=== PATIENT | female | born 1985 | race Caucasian/White ===

== ENCOUNTER 2018-12-10 14:35 | Inpatient (IN) | payer BC ==
[2018-12-10 16:09] LABS: Absolute Lymphocytes (CBC) 1.3 K/uL (0.7-4.9); Absolute Monocytes 0.6 K/uL (0.1-1.3); Absolute Neutrophil 9.4 K/uL (1.8-8.0); Basophils % 0.6 % (0-1.3); Eosinophils % 0.5 % (0-4.4); Hematocrit 44.8 % (36.0-45.0); Lymphocytes % 11.3 % (15.3-44.8); MPV 9.1 fL (7.6-11.3); Monocytes % 5.3 % (3.3-12.3); RBC Red Blood Cell Count 5.05 M/uL (3.86-4.86)
[2018-12-10 16:25] LABS: Protime INR 1.04
[2018-12-10 16:27] LABS: ALT/SGPT 19 U/L (12-78); AST/SGOT 12 U/L (15-37); Albumin 4.1 g/dL (3.4-5.0); Alkaline Phosphatase 80 U/L (45-117); BUN Blood Urea Nitrogen 9 mg/dL (7-18); Bicarbonate 26 mmol/L (21-32); Bilirubin Direct 0.1 mg/dL (0-0.2); Bilirubin Total 0.3 mg/dL (0.2-1.0); Glucose Level 103 mg/dL (74-106); Lipase 91 U/L (73-393); Magnesium 2.1 mg/dL (1.8-2.4); Potassium 3.6 mmol/L (3.5-5.1); Protein, Total 7.7 g/dL (6.4-8.2); Sodium Level 140 mmol/L (136-145)
[2018-12-10] MEDS ORDERED: NA CHLORIDE 0.9% 1,000 ML ONE ×2 (16:28→18:58)
--- NOTE | 2018-12-10 18:35 | RAD REPORT ---
EXAM DESCRIPTION: CT - Abdomen Pelvis W Contrast - 12/10/2018 6:21 pm CLINICAL HISTORY: Abdominal pain, bloody diarrhea COMPARISON: None. TECHNIQUE: Biphasic, helical CT imaging of the abdomen and pelvis was performed following 100 ml non -ionic IV contrast. Oral contrast was given. All CT scans are performed using dose optimization technique as appropriate and may include automated exposure control or mA/KV adjustment according to patient size. FINDINGS: No suspicious findings in the lung bases. The liver, spleen, and pancreas show no suspicious findings. Gallbladder and biliary tree are also wi thout suspicious finding. Symmetric renal function is seen with no hydronephrosis or suspicious renal mass. No pyelonephritis o r acute parenchymal process. No bladder abnormalities. No adrenal abnormalities. No gastric dilatation or wall thickening. No dilated small bowel. No appendicitis findings. From the cecum through the splenic flexure no acute colon finding. There is circumferential wall thickening of the descending colon. Little or no stranding is seen in the adjacent fat. Rectum and sigmoid colon a re only partially distended by the oral contrast. Active process is not suspected. No free air, free fluid or significant inflammatory stranding. No hernia, mass or bulky lymphadeno fidel. Uterus and ovaries show no suspicious findings. No suspicious bony findings. IMPRESSION: Mild colitis pattern identifiable in the descending colon. No discrete mass identifiable . No other acute GI process identifiable. Remainder the examination shows no significant or suspicious finding.
[2018-12-10 19:50] LABS: Urine Blood 2+ (NEG); Urine Glucose NEGATIVE (NEG); Urine Protein NEGATIVE (NEG); Urine Specific Gravity >1.030 (1.005-1.030)
--- NOTE | 2018-12-10 19:52 | EDPHYS ---
Physician Documentation [facility] Name: Ary Sanders Age: 33 yrs Sex: Female : 1985 Arrival Date: 12/10/2018 Time: 14:40 Bed 13 Private MD: ED Physician Christophe Dobbins HPI: 12/10 15:45 This 33 yrs old Female presents to ER via Ambulatory with complaints of cp Abdominal Pain, Bloody Stools. 15:45 The patient presents with abdominal pain that is diffuse. cp 15:45 Onset: The symptoms/episode began/occurred yesterday, and became worse this morning. cp Associated signs and symptoms: Pertinent positives: blood in stools, diarrhea, nausea, Pertinent negatives: chest pain, constipation, dysuria, fever, palpitations, vaginal discharge, vomiting. The symptoms are described as crampy. Patient reports she started taking Amoxicillin last week for enlarged lymph node. 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 - Social history:: Smoking status: Patient/guardian denies using tobacco, Patient/guardian denies using alcohol, street drugs. - Ebola Screening: : Patient negative for fever greater than or equal to 101.5 degrees Fahrenheit, and additional compatible Ebola Virus Disease symptoms Patient denies exposure to infectious person Patient denies travel to an Ebola-affected area in the 21 days before illness onset No symptoms or risks identified at this time. ROS: 16:00 Constitutional: Negative for body aches, chills, fever, poor PO intake. cp 16:00 Eyes: Negative for injury, pain, redness, and discharge. cp 16:00 ENT: Negative for drainage from ear(s), ear pain, sore throat, difficulty swallowing, difficulty handling secretions. 16:00 Cardiovascular: Negative for chest pain, edema, palpitations. 16:00 Respiratory: Negative for cough, shortness of breath, wheezing. 16:00 Abdomen/GI: Positive for abdominal pain, nausea, diarrhea, abdominal cramps, rectal bleeding, Negative for vomiting. 16:00 Back: Negative for pain at rest, pain with movement, radiated pain. 16:00 : Negative for urinary symptoms, vaginal bleeding. 16:00 Skin: Negative for cellulitis, rash. 16:00 Neuro: Negative for altered mental status, headache, syncope, weakness. 16:00 All other systems are negative. Exam: 16:05 Head/Face: Normocephalic, atraumatic. Eyes: Pupils equal round and reactive to light, cp extra-ocular motions intact. Lids and lashes normal. Conjunctiva and sclera are non-icteric and not injected. Cornea within normal limits. Periorbital areas with no swelling, redness, or edema. ENT: Nares patent. No nasal discharge, no septal abnormalities noted. Tympanic membranes are normal and external auditory canals are clear. Oropharynx with no redness, swelling, or masses, exudates, or evidence of obstruction, uvula midline. Mucous membranes moist. Chest/axilla: Normal chest wall appearance and motion. Nontender with no deformity. No lesions are appreciated. 16:05 Constitutional: The patient appears in no acute distress, alert, awake, non-toxic, well developed, well nourished, uncomfortable. 16:05 Cardiovascular: Rate: tachycardic, Rhythm: regular, Heart sounds: murmur, not cp appreciated, Edema: is not appreciated. 16:05 Respiratory: the patient does not display signs of respiratory distress, Respirations: normal, no use of accessory muscles, no retractions, no splinting, no tachypnea, labored breathing, is not present, Breath sounds: are clear throughout, no decreased breath sounds, no stridor, no wheezing. 16:05 Abdomen/GI: Inspection: abdomen appears normal, Bowel sounds: active, all quadrants, Palpation: soft, in all quadrants, moderate abdominal tenderness, in all quadrants, rebound tenderness, is not appreciated, involuntary guarding, is not appreciated. 16:05 Back: pain, is absent, ROM is normal. 16:05 Skin: cellulitis, is not appreciated, no rash present. 16:05 Neuro: Orientation: to person, place \T\ time. Mentation: is normal, Cerebellar function: is grossly normal, Motor: moves all fours, strength is normal, Sensation: is normal. Vital Signs: 15:15 BP 144 / 99; Pulse 110; Resp 22; Temp 98.9; Pulse Ox 99% on R/A; Weight 65.77 kg; ch Height 4 ft. 10 in. (147.32 cm); Pain 3/10; 15:56 BP 126 / 80 Supine; Pulse 96; Resp 17; Pulse Ox 100% on R/A; mh5 15:58 BP 134 / 91 Sitting; Pulse 98; Resp 18; Pulse Ox 100% on R/A; mh5 16:00 BP 132 / 89 Standing; Pulse 106; Resp 19; Pulse Ox 100% on R/A; mh5 17:00 BP 134 / 91; Pulse 83; Resp 16; Pulse Ox 99% on R/A; rb1 18:00 BP 132 / 89; Pulse 92; Resp 17; Pulse Ox 99% on R/A; Pain 2/10; rb1 19:00 BP 128 / 83; Pulse 86; Resp 16; Pulse Ox 100% on R/A; Pain 2/10; rb1 19:33 BP 131 / 85; Pulse 94; Resp 16 S; Temp 98.5(O); Pulse Ox 100% on R/A; cc3 20:15 BP 127 / 82; Pulse 87; Resp 17 S; Pulse Ox 99% on R/A; cc3 21:00 BP 113 / 67; Pulse 88; Resp 18 S; Pulse Ox 99% on R/A; cc3 15:15 Body Mass Index 30.30 (65.77 kg, 147.32 cm) ch MDM: 15:21 Patient medically screened. cp 16:00 Differential diagnosis: appendicitis, bowel obstruction, cholecystitis, Cholelithiasis, cp diverticulitis, gastritis, pancreatitis, colitis. 18:55 Data reviewed: vital signs, nurses notes, lab test result(s), radiologic studies, CT cp scan, I have discussed the patient's presentation/case with the attending Emergency Department Physician; and as a result, I will admit patient. 19:25 Physician consultation: Kiel Bravo MD was called at 19:25, was contacted at 19:25, regarding admission, to the medical/surgical unit. patient's condition. 19:25 Response to treatment: the patient's symptoms have markedly improved after treatment. 12/10 15:32 Order name: Basic Metabolic Panel; Complete Time: 16:58 cp / 16:58 Interpretation: Normal except: CL 109. cp / 15:32 Order name: CBC with Diff; Complete Time: 16:58 cp 12/10 16:58 Interpretation: Normal except: WBC 11.4; RBC 5.05; MARIA EUGENIA% 82.3; LYM% 11.3; NEUT A 9.4. cp / 15:32 Order name: Creatinine for Radiology; Complete Time: 16:58 cp 12/10 15:32 Order name: Hepatic Function; Complete Time: 16:58 cp 12/10 19:20 Interpretation: Normal except: AST 12; GLOB 3.6. cp 12/10 15:32 Order name: Lipase; Complete Time: 16:58 cp 12/10 15:32 Order name: Stool Culture cp 12/10 15:32 Order name: CDIFF cp 12/10 15:32 Order name: Magnesium; Complete Time: 16:58 cp 12/10 15:55 Order name: PT-INR; Complete Time: 16:58 cp 12/10 15:55 Order name: Ptt, Activated; Complete Time: 16:58 cp 12/10 15:55 Order name: CT Abd/Pelvis - W/Contrast; Complete Time: 18:38 cp 12/10 18:38 Interpretation: Report reviewed. cp 12/10 16:05 Order name: Urine Dipstick--Ancillary (enter results) bd 12/10 16:05 Order name: Urine --Ancillary (enter results) bd / 15:32 Order name: IV Saline Lock; Complete Time: 16:02 cp 12/10 15:32 Order name: Labs collected and sent; Complete Time: 16:02 cp 12/10 15:32 Order name: Orthostatics; Complete Time: 16:11 cp / 15:32 Order name: Urine Dipstick-Ancillary (obtain specimen); Complete Time: 16:02 cp / 15:32 Order name: Urine Test (obtain specimen); Complete Time: 16:02 cp Administered Medications: 16:24 Drug: NS 0.9% 1000 ml Route: IV; Rate: 1 bolus; Site: right antecubital; rb1 17:37 Follow up: IV Status: Completed infusion rb1 18:49 Drug: NS 0.9% 1000 ml Route: IV; Rate: 1 bolus; Site: right antecubital; rb1 20:15 Follow up: Response: No adverse reaction; IV Status: Completed infusion; IV Intake: cc3 1000ml 19:55 Drug: metroNIDAZOLE 500 mg Volume: 100 ml; Route: IVPB; Infused Over: 30 mins; Site: cc3 right antecubital; 20:30 Follow up: Response: No adverse reaction; IV Status: Completed infusion; IV Intake: cc3 100ml 20:35 Drug: Cipro 400 mg Volume: 200 ml; Route: IVPB; Infused Over: 60 mins; Site: right cc3 antecubital; 21:40 Follow up: Response: No adverse reaction; IV Status: Completed infusion; IV Intake: cc3 200ml Disposition: 12/10/18 19:51 Hospitalization ordered by Kiel Bravo for Observation. Preliminary diagnosis are Infectious gastroenteritis and colitis, unspecified, Gastrointestinal hemorrhage, unspecified. - Bed requested for Telemetry/MedSurg (observation). - Status is Observation. cc3 - Condition is Stable. - Problem is new. - Symptoms have improved. UTI on Admission? No Addendum: 12/16/2018 07:16 Co-signature as Attending Physician, Christophe Dobbins MD. r n Signatures: Dispatcher [employer] EDTX Magali Caraballo RN RN ch Webb, Martha, RN RN Christophe Dobbins MD MD rn Page, Corey, PA PA cp Barber, Rebecca, RN RN rb1 Brianne Calles cc3 Corrections: (The following items were deleted from the chart) 12/10 15:34 15:33 Occult Blood+PA.LAB.BRZ ordered. EDTX EDTX 20:12 19:51 Hospitalization Ordered by Kiel Bravo MD for Observation. Preliminary mw diagnosis is Infectious gastroenteritis and colitis, unspecified; Gastrointestinal hemorrhage, unspecified. Bed requested for Telemetry/MedSurg (observation). Status is Observation. Condition is Stable. Problem is new. Symptoms have improved. UTI on Admission? No. cp 21:57 20:12 12/10/2018 19:51 Hospitalization Ordered by Kiel Bravo MD for Observation. cc3 Preliminary diagnosis is Infectious gastroenteritis and colitis, unspecified; Gastrointestinal hemorrhage, unspecified. Bed requested for Telemetry/MedSurg (observation). Status is Observation. Condition is Stable. Problem is new. Symptoms have improved. UTI on Admission? No. mw
--- NOTE | 2018-12-10 19:52 | ER ---
Nurse's Notes [facility] Name: Ary Sanders Age: 33 yrs Sex: Female : 1985 Arrival Date: 12/10/2018 Time: 14:40 Bed 13 Private MD: Diagnosis: Infectious gastroenteritis and colitis, unspecified;Gastrointestinal hemorrhage, unspecified Presentation: 12/10 15:14 Presenting complaint: Patient states: I thought I had a stomach bug, started last ch night, today I am having blood blood clots from my rectum, horrible cramps. Transition of care: patient was not received from another setting of care. Onset of symptoms was December 09, 2018. Risk Assessment: Do you want to hurt yourself or someone else? Patient reports no desire to harm self or others. Initial Sepsis Screen: Does the patient meet any 2 criteria? No. Patient's initial sepsis screen is negative. Does the patient have a suspected source of infection? No. Patient's initial sepsis screen is negative. Care prior to arrival: None. 15:14 Method Of Arrival: Ambulatory 15:14 Acuity: BIENVENIDO 3 Triage Assessment: 15:15 General: Appears in no apparent distress. comfortable, Behavior is calm, cooperative, ch appropriate for age. Pain: Complains of pain in abdomen Pain currently is 3 out of 10 on a pain scale. 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 - Social history:: Smoking status: Patient/guardian denies using tobacco, Patient/guardian denies using alcohol, street drugs. - Ebola Screening: : Patient negative for fever greater than or equal to 101.5 degrees Fahrenheit, and additional compatible Ebola Virus Disease symptoms Patient denies exposure to infectious person Patient denies travel to an Ebola-affected area in the 21 days before illness onset No symptoms or risks identified at this time. Screenin:20 Abuse screen: Denies threats or abuse. Nutritional screening: No deficits noted. rb1 Tuberculosis screening: No symptoms or risk factors identified. Fall Risk None identified. Assessment: 15:20 General: Appears uncomfortable, Behavior is calm, cooperative, Denies fever. Pain: rb1 Complains of pain in abdomen Pain currently is 6 out of 10 on a pain scale. Quality of pain is described as crampy, Pain began last night around 2300. Neuro: Level of Consciousness is awake, alert, obeys commands, Oriented to person, place, time, situation. Cardiovascular: Capillary refill < 3 seconds is brisk in bilateral fingers. Respiratory: Airway is patent Respiratory effort is even, unlabored, Respiratory pattern is regular, symmetrical. GI: Bowel sounds present X 4 quads. Abd is soft X 4 quads Reports cramping, bloody stool. : No signs and/or symptoms were reported regarding the genitourinary system. Derm: Skin is pink, warm \T\ dry. Musculoskeletal: Range of motion: intact in all extremities. 16:20 Reassessment: Patient appears in no apparent distress at this time. No changes from rb1 previously documented assessment. 17:20 Reassessment: Patient appears in no apparent distress at this time. Patient and/or rb1 family updated on plan of care and expected duration. Pain level reassessed. Patient is alert, oriented x 3, equal unlabored respirations, skin warm/dry/pink. 18:20 Reassessment: Pt. in CT. rb1 18:50 Reassessment: Patient appears in no apparent distress at this time. Patient and/or rb1 family updated on plan of care and expected duration. Pain level reassessed. Patient is alert, oriented x 3, equal unlabored respirations, skin warm/dry/pink. 19:15 Reassessment: Patient appears in no apparent distress at this time. Patient and/or cc3 family updated on plan of care and expected duration. Pain level reassessed. Patient is alert, oriented x 3, equal unlabored respirations, skin warm/dry/pink. Received this female patietn from morning shift YENI Bryan as a case of abdominal pain and bloody stools. With IV cannula gauge 22 at the right ACV with ongoing IVF of NS 1 liter infusing well. 20:15 Reassessment: Patient appears in no apparent distress at this time. Patient and/or cc3 family updated on plan of care and expected duration. Pain level reassessed. Patient is alert, oriented x 3, equal unlabored respirations, skin warm/dry/pink. 21:00 Reassessment: Patient appears in no apparent distress at this time. Patient and/or cc3 family updated on plan of care and expected duration. Pain level reassessed. Patient is alert, oriented x 3, equal unlabored respirations, skin warm/dry/pink. Room available in 223, called for report but was told that the nurse who will receive will just call me back. 21:30 Reassessment: Report called and handed over to YENI Bautista for continuity of care cc3 and management. 21:50 Reassessment: Patient appears in no apparent distress at this time. Patient and/or cc3 family updated on plan of care and expected duration. Pain level reassessed. Patient is alert, oriented x 3, equal unlabored respirations, skin warm/dry/pink. Patient left ER for admission vitally stable by wheelchair escorted by page technicianlissa Deluca. Vital Signs: 15:15 BP 144 / 99; Pulse 110; Resp 22; Temp 98.9; Pulse Ox 99% on R/A; Weight 65.77 kg; ch Height 4 ft. 10 in. (147.32 cm); Pain 3/10; 15:56 BP 126 / 80 Supine; Pulse 96; Resp 17; Pulse Ox 100% on R/A; mh5 15:58 BP 134 / 91 Sitting; Pulse 98; Resp 18; Pulse Ox 100% on R/A; mh5 16:00 BP 132 / 89 Standing; Pulse 106; Resp 19; Pulse Ox 100% on R/A; mh5 17:00 BP 134 / 91; Pulse 83; Resp 16; Pulse Ox 99% on R/A; rb1 18:00 BP 132 / 89; Pulse 92; Resp 17; Pulse Ox 99% on R/A; Pain 2/10; rb1 19:00 BP 128 / 83; Pulse 86; Resp 16; Pulse Ox 100% on R/A; Pain 2/10; rb1 19:33 BP 131 / 85; Pulse 94; Resp 16 S; Temp 98.5(O); Pulse Ox 100% on R/A; cc3 20:15 BP 127 / 82; Pulse 87; Resp 17 S; Pulse Ox 99% on R/A; cc3 21:00 BP 113 / 67; Pulse 88; Resp 18 S; Pulse Ox 99% on R/A; cc3 15:15 Body Mass Index 30.30 (65.77 kg, 147.32 cm) ED Course: 14:40 Patient arrived in ED. mr 15:15 Triage completed. 15:15 Arm band placed on left wrist. Patient placed in an exam room, on a stretcher. 15:20 Ferny Johnson PA is PHCP. cp 15:21 Christophe Dobbins MD is Attending Physician. cp 15:21 Randi Powell RN is Primary Nurse. rb1 16:04 Initial lab(s) drawn, by ms, sent to lab. Inserted saline lock: 22 gauge in right jl7 antecubital area, using aseptic technique. Blood collected. 16:10 Urine collected: clean catch specimen, clear. mh5 16:11 Patient has correct armband on for positive identification. Placed in gown. Bed in low mh5 position. Call light in reach. Side rails up X 1. Warm blanket given. Pulse ox on. NIBP on. 16:11 Urine --Ancillary (enter results) Sent. mh5 16:11 Urine Dipstick--Ancillary (enter results) Sent. mh5 16:58 STOOL CULTURE AND C-DIFF COLLECTED AND SENT. mh5 17:00 Stool Culture Sent. mh5 17:00 CDIFF Sent. mh5 18:21 CT Abd/Pelvis - W/Contrast In Process Unspecified. EDMS 19:00 Report given to YENI Decker. rb1 19:51 Kiel Bravo MD is Hospitalizing Provider. cp 21:50 No provider procedures requiring assistance completed. Patient admitted, IV remains in cc3 place. Administered Medications: 16:24 Drug: NS 0.9% 1000 ml Route: IV; Rate: 1 bolus; Site: right antecubital; rb1 17:37 Follow up: IV Status: Completed infusion rb1 18:49 Drug: NS 0.9% 1000 ml Route: IV; Rate: 1 bolus; Site: right antecubital; rb1 20:15 Follow up: Response: No adverse reaction; IV Status: Completed infusion; IV Intake: cc3 1000ml 19:55 Drug: metroNIDAZOLE 500 mg Volume: 100 ml; Route: IVPB; Infused Over: 30 mins; Site: cc3 right antecubital; 20:30 Follow up: Response: No adverse reaction; IV Status: Completed infusion; IV Intake: cc3 100ml 20:35 Drug: Cipro 400 mg Volume: 200 ml; Route: IVPB; Infused Over: 60 mins; Site: right cc3 antecubital; 21:40 Follow up: Response: No adverse reaction; IV Status: Completed infusion; IV Intake: cc3 200ml Intake: 20:15 IV: 1000ml; Total: 1000ml. cc3 20:30 IV: 100ml; Total: 1100ml. cc3 21:40 IV: 200ml; Total: 1300ml. cc3 Outcome: 19:51 Decision to Hospitalize by Provider. cp 21:50 Admitted to Med/surg accompanied by tech, via wheelchair, room 223, with chart, Report cc3 called to YENI Bautista 21:50 Condition: stable 21:50 Instructed on the need for admit, Demonstrated understanding of instructions. 21:57 Patient left the ED. cc3 Signatures: Dispatcher [employer] EDMagali Rosado, RN RN maryuri Bustamante, Ferny Lugo, PA PA Randi Burger, RN RN rb1 Kailee Colvin Jahala RN RN jl7 Brianne Calles cc3
[2018-12-10] MEDS ORDERED: CIPROFLOXACIN 400mg IV 400 MG/200 ML BAG IV ONE (20:01)
[2018-12-10] MEDS ORDERED: METRONIDAZOLE 500mg IVPB 500 MG/100 ML BAG IV ONE (20:01)
--- NOTE | 2018-12-10 20:17 | P.HP ---
Certification for Inpatient Patient admitted to: Inpatient With expected LOS: >2 Midnights Practitioner: I am a practitioner with admitting privileges, knowledge of patient current condition, hospital course, and medical plan of care. Services: Services provided to patient in accordance with Admission requirements found in Title 42 Section 412.3 of the Code of Federal Regulations Patient History Date of Service: 12/10/18 Reason for admission: colitis History of Present Illness: Ms Sanders is a 33 years old woman with pretty benign past medical history who about 1 week ago she had a painful lymph node on her left neck, she took a refill prescription that she had of amoxicillin for 7 days. Pain and lymph node swelling resolved, however since yesterday, she start with abdominal cramps, mostly localized on her lower abdomen, associated with chills and sweating episodes. This morning, she start seen some blood clots mixing with her stools. She denied fever, nausea or vomiting. Lab work shows leukocytosis 11.4K, she was tachycardic 110 bpm, afebrile, BP 144/99. CT abd/pelvis consistent with mild colitis. Home medications list reviewed: Yes - Past Medical/Surgical History Past Medical History: Reviewed- Non-Contributory Past Surgical History: Reviewed- Non-Contributory - Family History Family History: Reviewed- Non-Contributory - Social History Smoking Status: Never smoker Alcohol use: Yes CD- Drugs: No Caffeine use: Yes Place of Residence: Home Review of Systems 10-point ROS is otherwise unremarkable Physical Examination - Physical Exam General: Alert, In no apparent distress HEENT: Atraumatic, PERRLA, Mucous membr. moist/pink, EOMI, Sclerae nonicteric Neck: Supple, 2+ carotid pulse no bruit, No LAD, Without JVD or thyroid abnormality Respiratory: Clear to auscultation bilaterally, Normal air movement Cardiovascular: Regular rate/rhythm, Normal S1 S2 Gastrointestinal: Normal bowel sounds, Tenderness (mild tenderness to palpation on lower abdomen.) Musculoskeletal: No tenderness Integumentary: No rashes Neurological: Normal gait, Normal speech, Normal strength at 5/5 x4 extr, Normal tone, Normal affect Lymphatics: No axilla or inguinal lymphadenopathy - Studies Laboratory Data (last 24 hrs) 12/10/18 16:09: PT 12.3, INR 1.04, APTT 32.3 12/10/18 15:58: Creatinine 0.61 12/10/18 15:58: WBC 11.4 H, Hgb 14.9, Hct 44.8, Plt Count 228 12/10/18 15:58: Sodium 140, Potassium 3.6, BUN 9, Creatinine 0.62, Glucose 103, Magnesium 2.1, Total Bilirubin 0.3, AST 12 L, ALT 19, Alkaline Phosphatase 80, Lipase 91 Assessment and Plan - Problems (Diagnosis) (1) Colitis Current Visit: Yes Status: Acute (2) Hematochezia Current Visit: Yes Status: Acute - Plan Will admit the patient due to hematochezia likely secondary to colitis. HH looks stable, will order serial monitor. Differential diagnosis include C.Diff, since she has been taking antibiotics for the last week. Will order C.diff and stool cultures. Will start empiric treatment with Cipro and flagyl, will adjust treatment according cultures. - Advance Directives Does patient have a Living Will: No Does patient have a Durable POA for Healthcare: No - Code Status/Comfort Care Code Status Assessed: Yes Code Status: Full Code
[2018-12-10] MEDS ORDERED: ACETAMINOPHEN 500 MG TAB PO PRN (22:09)
[2018-12-10] MEDS: CIPROFLOXACIN 400mg IV 400 MG/200 ML BAG IV SCH (22:09)
[2018-12-10] MEDS ORDERED: MORPHINE 2 MG/ML SYR IV PRN (22:09)
[2018-12-10] MEDS: NA CHLORIDE 0.9% 1,000 ML IV SCH (22:52)
[2018-12-10 23:09] LABS: Hematocrit 38.8 % (36.0-45.0)
[2018-12-11] MEDS: METRONIDAZOLE 500mg IVPB 500 MG/100 ML BAG IV SCH ×3 (01:05→16:26)
[2018-12-11] MEDS: ONDANSETRON 4 MG/2 ML VIAL IV PRN ×3 (01:09→22:05)
[2018-12-11 06:56] LABS: Absolute Lymphocytes (CBC) 1.6 K/uL (0.7-4.9); Absolute Monocytes 0.6 K/uL (0.1-1.3); Basophils % 0.6 % (0-1.3); Eosinophils % 0.7 % (0-4.4); Hematocrit 39.4 % (36.0-45.0); Lymphocytes % 19.7 % (15.3-44.8); MPV 9.2 fL (7.6-11.3); Monocytes % 7.1 % (3.3-12.3); RBC Red Blood Cell Count 4.47 M/uL (3.86-4.86)
[2018-12-11 07:08] LABS: BUN Blood Urea Nitrogen 5 mg/dL (7-18); Bicarbonate 24 mmol/L (21-32); Glucose Level 102 mg/dL (74-106); Potassium 3.9 mmol/L (3.5-5.1); Sodium Level 142 mmol/L (136-145)
[2018-12-11] MEDS: NA CHLORIDE 0.9% 1,000 ML IV SCH (08:11)
[2018-12-11] MEDS: CIPROFLOXACIN 400mg IV 400 MG/200 ML BAG IV SCH ×2 (08:11→22:05)
[2018-12-11] MEDS ORDERED: POTASSIUM CL SA 10 MEQ TAB PO ONE (09:00)
--- NOTE | 2018-12-11 14:01 | P.PN ---
Subjective Date of Service: 12/11/18 Primary Care Provider: None Chief Complaint: colitis Subjective: Improving (No rectal bleeding noted. Pain to the abdomen improved) Physical Examination - Vital Signs Temperature: 98.4 F Blood Pressure: 134/81 Pulse: 84 Respirations: 20 Pulse Ox (%): 97 - Physical Exam General: Alert, In no apparent distress, Oriented x3, Cooperative HEENT: Atraumatic Neck: Supple Respiratory: Clear to auscultation bilaterally, Normal air movement Cardiovascular: Normal pulses, Regular rate/rhythm Gastrointestinal: Normal bowel sounds, Soft and benign, Non-distended, No masses , No rebound, No guarding, Tenderness (Less pain to the abdomen) Musculoskeletal: No erythema, No tenderness, No warmth Integumentary: No tenderness/swelling, No erythema, No warmth, No cyanosis Neurological: Normal speech, Normal strength at 5/5 x4 extr, Normal tone, Normal affect - Studies Laboratory Data (last 24 hrs) 12/10/18 16:09: PT 12.3, INR 1.04, APTT 32.3 12/10/18 15:58: Creatinine 0.61 12/10/18 15:58: WBC 11.4 H, Hgb 14.9, Hct 44.8, Plt Count 228 12/10/18 15:58: Sodium 140, Potassium 3.6, BUN 9, Creatinine 0.62, Glucose 103, Magnesium 2.1, Total Bilirubin 0.3, AST 12 L, ALT 19, Alkaline Phosphatase 80, Lipase 91 Microbiology Data (last 24 hrs): 12/10/18 16:50 Stool Clostridium difficile Toxin Assay - Final Medications List Reviewed: Yes Assessment & Plan Discharge Plan: Home Plan to discharge in: 24 Hours Physician Review Additional Text: Impression: Abdominal pain, rectal bleeding secondary to descending Colitis Mild dehydration Plan: Abdominal pain, rectal bleeding secondary to descending Colitis: Patient appears improved. Less pain noted. No rectal bleeding noted. C diff culture negative. Continue IV antibiotic therapy and IV fluids. Will advance diet as tolerated. Encourage ambulation. Anticipate discharge in the next 24 hr. Will close surgery for further recommendation. Patient will require GI consult as outpatient for colonoscopy in 6-8 weeks. Mild dehydration: Continue IV fluids. Will monitor and adjust appropriately. Time Spent Managing Pts Care (In Minutes): 55
[2018-12-11] MEDS ORDERED: HYDROCODONE/APAP 7.5/325 MG TAB PO PRN (14:03)
[2018-12-11] MEDS ORDERED: TRAMADOL HCL 50 MG TAB PO PRN (14:03)
[2018-12-11] MEDS: NACHLORIDE 0.45% 1,000 ML IV SCH (14:33)
[2018-12-11] MEDS: LACTOBACILLUS/ACIDOPHILUS TAB PO SCH (22:05)
[2018-12-11] MEDS: FAMOTIDINE 20 MG TAB PO SCH (22:06)
[2018-12-12] MEDS: NACHLORIDE 0.45% 1,000 ML IV SCH ×2 (00:40→11:00)
[2018-12-12] MEDS: METRONIDAZOLE 500mg IVPB 500 MG/100 ML BAG IV SCH ×2 (00:40→08:15)
[2018-12-12 06:54] LABS: Absolute Lymphocytes (CBC) 1.4 K/uL (0.7-4.9); Absolute Monocytes 0.7 K/uL (0.1-1.3); Absolute Neutrophil 6.4 K/uL (1.8-8.0); Basophils % 0.6 % (0-1.3); Eosinophils % 1.5 % (0-4.4); Hematocrit 39.1 % (36.0-45.0); MPV 9.7 fL (7.6-11.3); Monocytes % 7.6 % (3.3-12.3); RBC Red Blood Cell Count 4.41 M/uL (3.86-4.86)
[2018-12-12 07:08] LABS: BUN Blood Urea Nitrogen 5 mg/dL (7-18); Bicarbonate 26 mmol/L (21-32); Glucose Level 89 mg/dL (74-106); Potassium 3.9 mmol/L (3.5-5.1); Sodium Level 142 mmol/L (136-145)
[2018-12-12] MEDS: CIPROFLOXACIN 400mg IV 400 MG/200 ML BAG IV SCH (08:16)
[2018-12-12] MEDS: ONDANSETRON 4 MG/2 ML VIAL IV PRN (08:16)
[2018-12-12] MEDS: FAMOTIDINE 20 MG TAB PO SCH (08:16)
[2018-12-12] MEDS: LACTOBACILLUS/ACIDOPHILUS TAB PO SCH (08:16)
[2018-12-12] MEDS ORDERED: POTASSIUM CL SA 10 MEQ TAB PO ONE (11:37)
--- NOTE | 2018-12-12 12:10 | P.DS ---
Admission Date: 12/10/18 Discharge Date: 12/12/18 Primary Care Provider: None Disposition: ROUTINE DISCHARGE Discharge Condition: GOOD Reason for Admission: colitis Consultations: none Procedures: CT scan: COMPARISON: None. TECHNIQUE: Biphasic, helical CT imaging of the abdomen and pelvis was performed following 100 ml non-ionic IV contrast. Oral contrast was given. All CT scans are performed using dose optimization technique as appropriate and may include automated exposure control or mA/KV adjustment according to patient size. FINDINGS: No suspicious findings in the lung bases. The liver, spleen, and pancreas show no suspicious findings. Gallbladder and biliary tree are also without suspicious finding. Symmetric renal function is seen with no hydronephrosis or suspicious renal mass. No pyelonephritis or acute parenchymal process. No bladder abnormalities. No adrenal abnormalities. No gastric dilatation or wall thickening. No dilated small bowel. No appendicitis findings. From the cecum through the splenic flexure no acute colon finding. There is circumferential wall thickening of the descending colon. Little or no stranding is seen in the adjacent fat. Rectum and sigmoid colon are only partially distended by the oral contrast. Active process is not suspected. No free air, free fluid or significant inflammatory stranding. No hernia, mass or bulky lymphadenopathy. Uterus and ovaries show no suspicious findings. No suspicious bony findings. IMPRESSION: Mild colitis pattern identifiable in the descending colon. No discrete mass identifiable. No other acute GI process identifiable. Remainder the examination shows no significant or suspicious finding. Medical problem list: Abdominal pain, hematochezia secondary to Descending Colitis Mild dehydration Brief History of Present Illness: 33-year-old female presented emergency room with abdominal pain and hematochezia. Patient recently on antibiotic therapy for lymphadenopathy. Patient found to have colitis. Patient was admitted for further treatment. Hospital Course: Patient presented with abdominal pain, hematochezia secondary to descending colitis. C diff culture negative. Patient did well with IV antibiotic therapy and fluids. At discharge she is without any significant abdominal pain. She has tolerated her diet. No more hematochezia noted. At discharge she will continue with Cipro 500 mg 1 pill twice daily and Flagyl 500 mg 3 times a day for 7 days. She will also be provided Zofran 4 mg 3 times a day as needed for nausea. Recommendation is for the patient follow up with her PCP in 1-2 weeks to follow up this hospitalization. Recommendation is for the patient follow up with GI in 1-2 weeks to further evaluate. Patient will likely require colonoscopy in 6-8 weeks to further address. Vital Signs/Physical Exam: Temp Pulse Resp BP Pulse Ox 98.3 F 85 16 128/73 97 12/12/18 08:00 12/12/18 08:00 12/12/18 08:00 12/12/18 08:00 12/12/18 08:00 General: Alert, In no apparent distress, Oriented x3, Cooperative HEENT: Atraumatic, Mucous membr. moist/pink Neck: Supple, No Thyromegaly Respiratory: Clear to auscultation bilaterally, Normal air movement Cardiovascular: Normal pulses, Regular rate/rhythm Gastrointestinal: Normal bowel sounds, Soft and benign, Non-distended, No tenderness, No masses, No rebound, No guarding Musculoskeletal: No erythema, No tenderness, No warmth Integumentary: No tenderness/swelling, No erythema, No warmth, No cyanosis Neurological: Normal speech, Normal strength at 5/5 x4 extr, Normal tone, Normal affect Lymphatics: No axilla or inguinal lymphadenopathy Laboratory Data at Discharge: WBC 8.6 K/uL (4.3-10.9) 12/12/18 05:23 Hgb 13.3 g/dL (12.0-15.0) 12/12/18 05:23 Hct 39.1 % (36.0-45.0) 12/12/18 05:23 Plt Count 217 K/uL (152-406) 12/12/18 05:23 PT 12.3 SECONDS (9.5-12.5) 12/10/18 16:09 INR 1.04 12/10/18 16:09 APTT 32.3 SECONDS (24.3-36.9) 12/10/18 16:09 Sodium 142 mmol/L (136-145) 12/12/18 05:23 Potassium 3.9 mmol/L (3.5-5.1) 12/12/18 05:23 BUN 5 mg/dL (7-18) L 12/12/18 05:23 Creatinine 0.60 mg/dL (0.55-1.3) 12/12/18 05:23 Glucose 89 mg/dL (74-106) 12/12/18 05:23 Magnesium 2.0 mg/dL (1.8-2.4) 12/12/18 05:23 Total Bilirubin 0.3 mg/dL (0.2-1.0) 12/10/18 15:58 AST 12 U/L (15-37) L 12/10/18 15:58 ALT 19 U/L (12-78) 12/10/18 15:58 Alkaline Phosphatase 80 U/L (45-117) 12/10/18 15:58 Lipase 91 U/L (73-393) 12/10/18 15:58 Home Medications: l-Norgest/E.estradiol-E.estrad [Daysee 0.15-0.03-0.01 mg Tab] 1 tab PO DAILY 02/23 Ciprofloxacin HCl [Cipro 500 MG Tablet] 500 mg PO BID #14 tab 12/12/18 Ondansetron HCl [Zofran] 4 mg PO TID PRN #10 tablet 12/12/18 metroNIDAZOLE [Flagyl] 500 mg PO Q8H #21 tablet 12/12/18 New Medications: Ciprofloxacin HCl [Cipro 500 MG Tablet] 500 mg PO BID #14 tab metroNIDAZOLE [Flagyl] 500 mg PO Q8H #21 tablet Ondansetron HCl [Zofran] 4 mg PO TID PRN #10 tablet PRN Reason: Nausea / Vomiting Patient Discharge Instructions: 1. Patient will follow up with a PCP to establish care. 2. Patient presented with abdominal pain, hematochezia secondary to descending colitis. C diff culture negative. Patient did well with IV antibiotic therapy and fluids. At discharge she is without any significant abdominal pain. She has tolerated her diet. No more hematochezia noted. At discharge she will continue with Cipro 500 mg 1 pill twice daily and Flagyl 500 mg 3 times a day for 7 days. She will also be provided Zofran 4 mg 3 times a day as needed for nausea. Recommendation is for the patient follow up with her PCP in 1-2 weeks to follow up this hospitalization. Recommendation is for the patient follow up with GI in 1-2 weeks to further evaluate. Patient will likely require colonoscopy in 6-8 weeks to further address. Diet: GI soft then advance as tolerated to diverticular diet Activity: Ad shanel Time spent managing pt's care (in minutes): 55
== END 2018-12-12 13:17 | disposition home or self-care (01) | DRG 392 ==
LOC: ER 14:35 → ERHOLD 20:27 → 2ND 21:36
PROVIDERS: ADMIT Internal Medicine; ATTEND Family Medicine
DX: A09 Infectious gastroenteritis and colitis, unspecified (principal); K92.1 Melena; E86.0 Dehydration
CPT/HCPCS: 36415; 74177; 80048; 80076; 81003; 81025; 83690; 83735; 85014; 85018; 85025; 85610; 85730; 87045; 87046; 87493; 96361; 96365; 96367; 99285; J0744; J2405; J7030; Q9967